=== PATIENT | female | born 1955 | race Caucasian/White ===

== ENCOUNTER → 2017-01-30 | Outpatient (CLI) | payer BC | END | disposition home or self-care (01) | LOC: GMAL 14:15 | PROVIDERS: ATTEND Family Medicine | DX: N30.00 Acute cystitis without hematuria (principal) ==

== ENCOUNTER → 2017-03-09 | Outpatient (CLI) | payer BC ==
--- NOTE | 2017-03-09 17:32 | RAD ---
Procedure: XR HIP 2 OR MORE VIEWS Exam Date: 03/09/2017 12:00 AM CDT Ordering Provider: MELY SHIRLEY Clinical Indication: LEFT HIP PAIN. M25.552 Comparison: None Findings: No fracture, focal osseous destruction, or malalignment. Joint spaces are preserved. Soft tissues are unremarkable. IMPRESSION: No acute osseous abnormality. Electronically signed by: Nelli Seymour MD 03/09/2017 5:32 PM CDT
--- NOTE | 2017-03-09 17:32 | RAD ---
Procedure: XR PELVIS 1-2 VIEWS Exam Date: 03/09/2017 12:00 AM CDT Ordering Provider: MELY SHIRLEY Clinical Indication: LEFT HIP PAIN Comparison: None Findings: No fracture, focal osseous destruction, or malalignment. Joint spaces are preserved. Soft tissues are unremarkable. IMPRESSION: No acute osseous abnormality. Electronically signed by: Nelli Seymour MD 03/09/2017 5:31 PM CDT
== END | disposition home or self-care (01) ==
LOC: RAD 14:24
PROVIDERS: ATTEND Orthopaedic Surgery
DX: M25.552 Pain in left hip (principal)

== ENCOUNTER → 2017-04-24 | Outpatient (CLI) | payer BC ==
--- NOTE | 2017-04-24 14:33 | MAM ---
EXAM DESCRIPTION: 3D Screening BILATERAL CLINICAL HISTORY: 62 yearsFemaleSCREENING. No complaints. Postmenopausal. Not currently taking HRT. COMPARISON: Digital screening bilateral examination 06/02/2010. No prior reports available. TECHNIQUE: Bilateral CC and MLO projection full-field images, 3-D tomosynthesis digital mammographic technique. Also bilateral synthesized CC/ MLO full-field images. CAD not utilized. FINDINGS: The breast parenchymal density pattern is: Scattered areas of fibroglandular density. No skin thickening or nipple retraction left axillary lymph nodes. Small microcalcifications in the anterior lateral right breast. Small skin calcifications on the lateral right breast. No focal, stellate mass or density, focal asymmetry , and no suspicious microcalcifications bilaterally. Stable mammograms since May 2010. IMPRESSION: BI-RADS CATEGORY: 2 - BENIGN FINDINGS. FOLLOW UP: Routine digital bilateral screening, one year interval from date Written communication explaining the findings and follow-up, will be mailed to the patient and referring health care provider. According to the [employer], yearly mammograms are recommended starting at age 40 and continuing as long as a woman is in good health. Any breast change noted on a breast self-exam should be reported promptly to the patient's healthcare provider. Breast MRI is recommended for women with an approximately 20-25% or greater lifetime risk of breast cancer, including women with a strong family history of breast or ovarian cancer and women who have been treated for Hodgkin's disease. A negative mammographic report should not delay tissue diagnosis in patients with significant clinical history or physical findings. Extremely dense breast tissue limits the sensitivity of digital mammography. Electronically signed by: Pavel Olguin MD 04/24/2017 2:32 PM CDT Workstation: [id number]
== END ==
LOC: MAMMO 09:00
PROVIDERS: ATTEND Family Medicine
DX: Z12.31 Encounter for screening mammogram for malignant neoplasm of breast (principal)

== ENCOUNTER → 2017-05-21 | Outpatient (CLI) | payer BC | END | disposition home or self-care (01) | LOC: LAB.O 13:43 | PROVIDERS: ATTEND Family Medicine | DX: N39.0 Urinary tract infection, site not specified (principal) ==

== ENCOUNTER → 2018-08-05 | Outpatient (CLI) | payer BC ==
--- NOTE | 2018-08-05 10:34 | RAD ---
EXAM DESCRIPTION: Hand,Right 3 Views CLINICAL HISTORY: HAND PAIN COMPARISON: None Available. TECHNIQUE: AP, LATERAL, AND OBLIQUE FINDINGS: Three-view right hand shows no fracture or dislocation. There is a curvilinear calcification medial to the fifth metacarpal phalangeal joint. This appears to be a dystrophic calcification likely related to previous ligamentous injury. This was not present on the remote prior study from February 2012. IMPRESSION: 1. Calcification left fifth MCP-otherwise negative Electronically signed by: Foreign Zapata MD 08/05/2018 10:32 AM CDT
== END ==
LOC: RAD 09:19
PROVIDERS: ATTEND Orthopaedic Surgery
DX: M79.641 Pain in right hand (principal)

== ENCOUNTER → 2019-07-09 | Outpatient (CLI) | payer BC | LOC: GMAL 14:18 | PROVIDERS: ATTEND Family Medicine | DX: D51.3 Other dietary vitamin B12 deficiency anemia (principal); E55.9 Vitamin D deficiency, unspecified; N18.9 Chronic kidney disease, unspecified ==

== ENCOUNTER → 2020-02-23 | Outpatient (CLI) | payer OTHER ==
--- NOTE | 2020-02-23 16:01 | RAD ---
EXAM DESCRIPTION: Abdomen Flat Upright: CR/DR/XR. CLINICAL HISTORY: GEN ABD PN COMPARISON: Abdominal 3 view May 2010. TECHNIQUE: 3 VIEWS. Upright abdomen and chest AP, supine abdomen AP and supine abdomen and pelvis AP. FINDINGS: No acute process in the lung bases or pleura. Cardiopulmonary vascular structures radiographically unremarkable. No free air under the diaphragms. Air-fluid level in single segment of small bowel left midabdomen overlying the left kidney. No other distended segments of small bowel. Gas in the proximal and mid colon with fecal matter distally. Lumbar spondylosis L4-L5 and L5-S1. IMPRESSION: No free air under the diaphragm and no small bowel obstruction. Minimal bowel stasis. Constipation distal colon. No abnormality in the lung bases. Electronically signed by: Pavel Olguin MD 02/23/2020 4:00 PM CDT
== END ==
LOC: RAD 15:17
PROVIDERS: ATTEND Family Medicine
DX: K59.00 Constipation, unspecified (principal)

== ENCOUNTER → 2020-03-08 | Outpatient (CLI) | payer MEDICARE, OTHER | LOC: GMAL 14:26 | PROVIDERS: ATTEND Family Medicine | DX: D51.3 Other dietary vitamin B12 deficiency anemia (principal); R53.83 Other fatigue; E34.8 Other specified endocrine disorders; E55.9 Vitamin D deficiency, unspecified; I10 Essential (primary) hypertension; R73.9 Hyperglycemia, unspecified; E78.49 Other hyperlipidemia ==

== ENCOUNTER → 2020-03-23 | Outpatient (CLI) | payer MEDICARE, OTHER ==
--- NOTE | 2020-03-23 17:03 | MAM ---
EXAM DESCRIPTION: 3D Screening BILATERAL : Digital Mammography. CLINICAL HISTORY: 65 years Female ANNUAL SCREENING . No complaints. No personal or family history of breast cancer. Menarche age 13. Childbirth age 31. Menopause age 57. HRT 5 or more years ago.. Lifetime risk of developing breast cancer (Tyrer-Cuzick model)(%): 8.6. COMPARISON: Bilateral screening digital breast tomosynthesis May 2018 and April 2017. TECHNIQUE: Bilateral CC and MLO projection full-field images, digital tomosynthesis mammographic technique. Bilateral digital 2-D full-field MLO images. CAD available for 2-D images. FINDINGS: The breast parenchymal density pattern is: Scattered areas of fibroglandular density No skin thickening or nipple retraction. Bilateral solitary microcalcifications. Axillary nodes. Small groups of benign microcalcifications. No new focal, stellate mass or density, focal asymmetry , and no suspicious microcalcifications bilaterally. Stable mammograms compared to prior study. IMPRESSION: Benign exam. BIRAD CATEGORY: 2 BENIGN FINDINGS. RECOMMENDATIONS: FOLLOW UP: Routine digital bilateral mammographic screening, one year interval from March 2020. Written communication explaining the IMPRESSION and follow-up, will be mailed to the patient and referring health care provider According to the [employer], yearly mammograms are recommended starting at age 40 and continuing as long as a woman is in good health. Any breast change noted on a breast self-exam should be reported promptly to the patient's healthcare provider. Breast MRI is recommended for women with an approximately 20-25% or greater lifetime risk of breast cancer, including women with a strong family history of breast or ovarian cancer and women who have been treated for Hodgkin's disease. A negative mammographic report should not delay tissue diagnosis in patients with significant clinical history or physical findings. Extremely dense breast tissue limits the sensitivity of digital mammography. Electronically signed by: Pavel Olguin MD 03/23/2020 5:02 PM CDT
--- NOTE | 2020-03-24 15:50 | US ---
EXAM DESCRIPTION: Abdomen,Complete: Ultrasound. CLINICAL HISTORY: 65 years FemaleRIGHT UPPER QUADRANT PAIN COMPARISON: Digital screening breast tomosynthesis on the same visit. TECHNIQUE: Transabdominal scanning: grayscale and Doppler modes. FINDINGS: Gallbladder: Small to moderate-sized. Echogenic structures adherent to the wall, the largest is on the hepatic wall and demonstrating acoustic shadowing measures 1.25 cm. A polyp with no acoustic shadowing more medial and superior measures 7.5 mm. Wall thickness 1.8 mm normal caliber. No fluid in the wall. Nontender with transducer pressure. Common bile duct: 4.0 mm which is normal limits. Liver: Heterogeneously increased echogenicity. Long axis right lobe 13.9 cm. Physiologic flow in the portal vein with caliber 8 mm at the trent hepatis. Smooth capsule with no ascites.. Pancreas: Normal echogenicity and size with no pancreatic duct visible.. Abdominal aorta: Normal caliber from the proximal segment to the distal bifurcation. IVC: visualized; normal caliber. Spleen normal echogenicity; long axis measurement is 9.2 cm. Right kidney: 10.2 cm long axis. Minimal decrease in cortical thickness. 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 No echogenic stones or hydronephrosis. Left kidney: 9.7 cm Long axis with volume 129.6 mL. Normal cortical echogenicity and thickness. Volume 129.6 mL. Cluster of cysts versus complex cyst with septations in the lower pole measuring 1.7 x 1.5 x 1.3 cm. Possible calcification or stones. Posterior acoustic shadowing no hydronephrosis. . IMPRESSION: 1. Adherent stone versus polyp on the hepatic wall of the gallbladder. A second polyp is visible on the free wall. No wall thickening or fluid or tenderness. Common bile duct normal caliber. If gallbladder function is in question clinically, consider hepatobiliary radionuclide imaging. 2. Steatosis of the liver with normal size. Otherwise unremarkable. Pancreas is negative. 3. Complex cyst in the lower left kidney with greatest dimension 1.7 cm.. Possible calcification in the dominguez. Could also represent a cluster of cysts. Consider CT scan of the abdomen without and with IV contrast. Partial duplication of the right kidney. CRITICAL COMMUNICATION: The critical value was communicated directly by Dr. Olguin via phone call, with Dr. Britton Eid, at approximately 1535 hours, on March 24, 2020. Electronically signed by: Pavel Olguin MD 03/24/2020 3:49 PM CDT
== END ==
LOC: US 09:32
PROVIDERS: ATTEND Family Medicine
DX: Z12.31 Encounter for screening mammogram for malignant neoplasm of breast (principal); K87 Disorders of gallbladder, biliary tract and pancreas in diseases classified elsewhere; K76.0 Fatty (change of) liver, not elsewhere classified; N28.1 Cyst of kidney, acquired; N28.9 Disorder of kidney and ureter, unspecified

== ENCOUNTER → 2020-03-26 | Outpatient (CLI) | payer MEDICARE, OTHER | LOC: ECHO 09:12 | PROVIDERS: ATTEND Family Medicine | DX: I50.30 Unspecified diastolic (congestive) heart failure (principal); I51.7 Cardiomegaly ==

== ENCOUNTER → 2020-03-29 | Outpatient (CLI) | payer MEDICARE, OTHER ==
--- NOTE | 2020-03-29 11:04 | CT ---
EXAM DESCRIPTION: CT ABDOMEN WITHOUT AND WITH CONTRAST CLINICAL HISTORY: NEOPLASM OF LEFT KIDNEY COMPARISON: April 10, 2010, March 23, 2020 abdominal sonogram TECHNIQUE: CT of the abdomen is performed prior to and during IV bolus administration of nonionic contrast. Oral contrast media was not administered. The examination was performed from the lung bases to the mid pelvis on multiple sequences. The lower pelvis and bladder were not evaluated. This exam was performed according to our departmental dose-optimization program, which includes automated exposure control, adjustment of the mA and/or kV according to patient size and/or use of iterative reconstruction technique. FINDINGS: The lung bases are clear without infiltrates or effusions or masses. A small normal sized heart and small retrocardiac hiatal hernia noted. Review of remote [address] demonstrate no abnormality of the lower pole left kidney. A complicated or septated cyst lower pole left kidney suggested on current abdominal sonogram performed March 23, 2020. Noncontrast imaging suggest prominent calyces or small cysts involving the lower pole left kidney within the region of the inferior renal hilum. No intrarenal calculi or hydronephrosis identified. Venous phase imaging demonstrates no evidence of cortical mass on the right or left. Small parapelvic cyst suggested lower pole left kidney. Five minute delayed imaging demonstrates a bifid renal pelvis on the right without hydronephrosis or significant caliectasis. A single ureter is present. On the left at least two small parapelvic cysts surrounding the lower pole infundibulum noted with normal-appearing collecting system and no evidence of hydronephrosis. No solid mass evident. No further evaluation is recommended. A single normal collecting system and ureter noted on the left. No perinephric abnormalities noted. Venous imaging of the remainder of the abdomen and upper pelvis demonstrates normal enhancement of the liver. Gallbladder is appears incompletely distended but without visible stone or mass or wall thickening or ductal dilation. A small normal spleen is present with small accessory spleen annual. Pancreas is small in normal and small normal adrenal glands noted. Minimal aortic atherosclerosis without aneurysm or significant retroperitoneal adenopathy noted. Within the pelvis, prior surgery and surgical anastomosis in the region of the mid to distal sigmoid is noted with surgical suture line and a small area of inspissated contrast or dystrophic calcification along the posterior margin of the uterus. No adnexal masses or abdominal or pelvic ascites. No acute abnormality present. Small and large bowel caliber is normal. Moderately significant left colonic diverticulosis noted. Remotely identified changes of acute diverticulitis have resolved since remote study in 2009. IMPRESSION: 1. Left lower lobe kidney small parapelvic cysts, benign in appearance, with at least two and possibly three small cysts present. No significant solid component and no further workup recommended. No evidence of stone disease or solid renal mass. This corresponds to the sonographic abnormality identified. 2. Prior left colonic surgery and surgical anastomosis in the central pelvis behind the dome of the uterus. Residual diverticulosis of the left colon without diverticulitis. 3. Small retrocardiac hiatal hernia 4. Modest degenerative disc disease multiple levels, most prominent L2-3. Electronically signed by: Evan Fletcher MD 03/29/2020 11:03 AM CDT
== END ==
LOC: CT 08:00
PROVIDERS: ATTEND Family Medicine
DX: N28.1 Cyst of kidney, acquired (principal); K57.30 Diverticulosis of large intestine without perforation or abscess without bleeding; K44.9 Diaphragmatic hernia without obstruction or gangrene; M51.36 Other intervertebral disc degeneration, lumbar region; Z98.890 Other specified postprocedural states

== ENCOUNTER → 2020-04-01 | Outpatient (CLI) | payer MEDICARE, OTHER ==
--- NOTE | 2020-04-01 15:23 | RAD ---
EXAM DESCRIPTION: Foot,Right 3 Views CLINICAL HISTORY: 65 years Female, PAIN IN RIGHT FOOT COMPARISON: None. Findings: 3 views/radiographs Location: Right foot No acute fracture or dislocation. Osteopenia. Moderate first MTP arthropathy. Lisfranc alignment is maintained. No focal soft tissue swelling. Pes planus. Calcaneal enthesophytes. IMPRESSION: No evidence of acute process in the right foot. Electronically signed by: Fletcher Harrison MD 04/01/2020 3:22 PM CDT
--- NOTE | 2020-04-01 15:25 | RAD ---
EXAM DESCRIPTION: Hip,Right 2 Views CLINICAL HISTORY: 65 years Female, PAIN IN RIGHT HIP COMPARISON: None. FINDINGS: Two views of the right hip show no acute fracture or malalignment. No right hip joint space narrowing. No focal bone lesion or periostitis. No concerning soft tissue abnormality. IMPRESSION: Negative exam. Electronically signed by: Jack Fleming MD 04/01/2020 3:24 PM CDT
--- NOTE | 2020-04-01 15:25 | RAD ---
EXAM DESCRIPTION: Hip,Left 2 Views CLINICAL HISTORY: 65 years Female, PAIN IN LEFT HIP COMPARISON: None. FINDINGS: Two views of the left hip show no acute fracture or malalignment. No left hip joint space narrowing. No focal bone lesion. Pelvic phleboliths. The soft tissues are otherwise unremarkable. IMPRESSION: Negative exam. Electronically signed by: Jack Fleming MD 04/01/2020 3:23 PM CDT
--- NOTE | 2020-04-01 15:27 | RAD ---
EXAM DESCRIPTION: Pelvis CLINICAL HISTORY: 65 years Female, HIP PAIN COMPARISON: March 09, 2017 FINDINGS: Single AP view of the pelvis shows no acute fracture or malalignment. The hip joint spaces are well-maintained. The sacroiliac joints and pubic symphysis are unremarkable. Mild enthesopathic calcifications arise from the anterior superior iliac spines and greater trochanters bilaterally. Pelvic phleboliths. IMPRESSION: Mild degenerative changes, otherwise unremarkable exam. Electronically signed by: Jack Fleming MD 04/01/2020 3:25 PM CDT
== END ==
LOC: RAD 09:48
PROVIDERS: ATTEND Orthopaedic Surgery
DX: M16.0 Bilateral primary osteoarthritis of hip (principal); M79.671 Pain in right foot

== ENCOUNTER 2020-04-08 21:43 | Observation (INO) | payer MEDICARE, OTHER ==
[2020-04-08] MEDS ORDERED: SODIUM CHLORIDE 0.9% 1000ML 1,000 ML IVS ONE (22:08)
[2020-04-08] MEDS ORDERED: ONDANSETRON INJ 4 MG/2 ML VIAL IV ONE (22:08)
[2020-04-08] MEDS ORDERED: HYDROmorphone HCL INJ 2 MG/ML VIAL IV ONE (22:09)
--- NOTE | 2020-04-08 23:01 | ED.PDOC ---
History of Present Illness - General Chief Complaint: Abdominal Pain Stated Complaint: I think I am having a gallbladder attack Time Seen by Provider: 04/08/20 22:01 Information Source: patient Additional Information: 65yo F who presents for evaluation of acute abdominal pain radiating into the chest onset this evening. The patient states the pain began during meal time and after eating cheese. She states she has hx of gallstones and things that it could be her gallbladder. Associated nausea. No vomiting. The patient has no hx of cardiac disease. No report of exceptional CP. No fever or recent illness. She has hx of appendectomy in childhood and partial colectomy 10 years ago. No other reported issues. - History of Present Illness Abdominal Pain Onset Location: RUQ, epigastric Pain Radiation: chest Quality: moderate, dull Review of Systems - Review of Systems Constitutional: Denies: chills, fever EENTM: States: no symptoms reported Respiratory: Denies: cough, short of breath, wheezing Cardiology: States: chest pain. Denies: edema, palpitations Gastrointestinal/Abdominal: States: abdominal pain, nausea. Denies: diarrhea, vomiting Genitourinary: States: no symptoms reported Musculoskeletal: States: back pain. Denies: muscle pain, neck pain Skin: Denies: change in color, rash Neurological: Denies: headache, numbness, weakness Endocrine: States: no symptoms reported Past Medical History (General) - Patient Medical History Hx Congestive Heart Failure: No Hx Hypertension: Yes Hx Cancer: No - Vaccination History Hx Tetanus, Diphtheria Vaccination: No Hx Influenza Vaccination: Yes Hx Pneumococcal Vaccination: No - Social History Hx Tobacco Use: No Hx Alcohol Use: No Hx Substance Use: No Hx Substance Use Treatment: No Hx Depression: No - Female History Patient is a Female of Child Bearing Age (10 -59 yrs old): No Patient : No Family Medical History - Family History Mother Family History: Unknown Physical Exam - Physical Exam General Appearance: Alert, Other - Moderate distress due to discomfort Eyes, Ears, Nose, Throat Exam: PERRL/EOMI, normal ENT inspection Neck: non-tender, full range of motion, supple Respiratory: chest non-tender, lungs clear, no respiratory distress Cardiovascular/Chest: normal peripheral pulses, no edema Gastrointestinal/Abdominal: tenderness - RUQ no guarding or rebound Back Exam: normal inspection, no vertebral tenderness Extremity: normal range of motion, non-tender Neurologic: no motor/sensory deficits, alert, normal mood/affect, oriented x 3 Skin Exam: normal color, warm/dry Progress - Progress Progress: DDX: Acute cholecystitis, hepatobiliary problem, pancreatitis, gastritis, PUD, GERD, ACS, Arrhythmia, lyte disorder, anemia. N95 mask, gloves and eye protection used during encounter. Dennis Torres, #[id number] 04/08/20 23:20 Reviewed recent US from last month which demonstrates cholelithiasis. Elevated lipase likely biliary in etiology. Case discussed with patient and (Dr. Roman). Results reviewed together in detail. Agree with plan for admission and further assessment. 04/08/20 23:22 Case discussed with Nadia (hospitalist). Will admit. 04/08/20 23:28 - Results/Orders Results/Orders: 04/08/20 22:08 Sodium Chloride 0.9% 1000ML [Ns 1000 ml] 1,000 ml IVS ONCE 04/08/20 22:15 EKG STAT Laboratory Results - last 24 hr 04/08/20 04/08/20 04/08/20 22:20 22:20 22:20 WBC 5.9 RBC 4.92 Hgb 13.9 Hct 41.2 MCV 83.6 MCH 28.3 MCHC 33.8 RDW 14.0 Plt Count 183 MPV 9.2 Absolute Neuts (auto) 3.20 Absolute Lymphs (auto) 2.00 Absolute Monos (auto) 0.60 Absolute Eos (auto) 0.10 Absolute Basos (auto) 0.10 Neutrophils % 54.6 Lymphocytes % 33.7 Monocytes % 9.3 H Eosinophils % 1.2 Basophils % 1.2 Sodium 136 Potassium 3.9 Chloride 103 Carbon Dioxide 23 Anion Gap 13.9 BUN 22 H Creatinine 0.63 BUN/Creatinine Ratio 34.9 H Random Glucose 111 H Serum Osmolality 276.0 Calcium 9.3 Total Bilirubin 0.4 AST 20 ALT 21 Alkaline Phosphatase 62 Creatine Kinase 73 CK-MB (CK-2) 1.3 CK-MB (CK-2) % Not Reportable Troponin I < 0.02 Serum Total Protein 7.0 Albumin 3.9 Globulin 3.1 Albumin/Globulin Ratio 1.3 Amylase 253 H* Lipase 652 H Last Vital Signs Temp 98.2 F 04/08/20 21:50 Pulse 82 07/02/20 23:00 Resp 16 04/08/20 23:00 BP 144/77 04/08/20 23:00 Pulse Ox 92 L 04/08/20 23:00 - EKG/XRAY/CT EKG: Sinus, no ST T wave changes - (22:05) Comments: 81, nl axis, nl intervals Departure - Departure Clinical Impression: Acute pancreatitis Qualifiers: Pancreatitis type: biliary Acute pancreatitis complication: unspecified Qualified Code(s): K85.10 - Biliary acute pancreatitis without necrosis or infection Chest pain, unspecified Qualifiers: Chest pain type: unspecified Qualified Code(s): R07.9 - Chest pain, unspecified Time of Disposition: 23:19 Disposition: Admit Patient Condition: Fair Departure Forms: ED Discharge - Pt. Copy, Patient Portal Self Enrollment Instructions: DI for Abdominal Pain-Adult Referrals: Britton Eid III, MD [Primary Care Provider] - 1-2 Weeks Home Medications: Ambulatory Orders Sulfa/Trimeth 800/160 (Ds) Tab [Bactrim DS] 1 tablet PO BID #20 tab 05/24/18 Decision To Admit - Decistion To Admit Decision to Admit Reason: Admit from ER Decision to Admit Date: 04/08/20 Decision to Admit Time: 23:19
--- NOTE | 2020-04-08 23:39 | HP ---
SUPERVISING PHYSICIAN: Jovanny Montero MD CHIEF COMPLAINT: "I think I am having a gallbladder attack." HISTORY OF PRESENT ILLNESS: Ms. Roman is a 65 year-old female patient who presented to the Emergency Department last night having some right upper quadrant pain that was radiating into her chest that started on the evening of her visit to the Emergency Room. She endorsed that she does have a history of cholelithiasis and has been on a diet for her gallbladder but had a piece of cheese which shortly after she had a severe onset of symptoms in the right upper quadrant similar to previous episodes. In the Emergency Room, laboratory studies showed a normal white count. Chemistries showed just a slightly elevated BUN of 22, glucose 111, liver functions all within normal limits but her amylase was 253 and lipase was 652. Given her history and onset of symptoms and laboratory studies indicating she had biliary acute pancreatitis, the patient is going to be placed in observation for a surgical consultation with Dr. Lanza for acute laparoscopic cholecystectomy in the morning. The patient was placed in observation in stable condition. PAST MEDICAL HISTORY: 1. Hypertension with grade 1 diastolic dysfunction, last echocardiogram on March 26, 2020 showing ejection fraction of 60 to 65%. 2. Gastroesophageal reflux disease. 3. Cholelithiasis. 4. Irritable bowel syndrome. 5. Restless leg syndrome. 6. Hepatitis B. 7. Allergic rhinitis. 8. Recurrent urinary tract infections on chronic antibiotics in the form of Keflex. PAST SURGICAL HISTORY: 1. Appendectomy at age 13. 2. Open reduction and internal fixation of left jaw at age 26. 3. Laparoscopic sigmoid colectomy for recurrent diverticulitis in 2009. CURRENT MEDICATIONS: 1. Vitamin D3, 5000 units daily. 2. Pantoprazole 40 mg daily. 3. Vitamin D2, 50,000 units daily. 4. Vitamin B12, 1000 mcg daily. 5. Losartan Hydrochlorothiazide 100-12.5 mg, 1 tablet daily. 6. Progesterone micronized 200 mg, 1 capsule daily. 7. Thyroid 90 mg one-half tablet daily. FAMILY HISTORY: Father had a history of PSD and coronary artery disease. Mother at age 72 secondary to CVA and uncontrolled hypertension. She has one brother who has multiple medical problems and another brother who is healthy. She has one sister with rheumatoid arthritis and CVA, another sister who has multiple orthopedic problems and another sister who is healthy. She has one son who has ADHD, another son who is healthy. SOCIAL HISTORY: The patient works with her as an office nurse. She is , she lives in [place]. She has 2 children. She has never smoked and drinks alcohol on very rare occasions. REVIEW OF SYSTEMS: CONSTITUTIONAL: Denies general malaise, fevers, chills. HEENT: Denies headaches. vision changes, sore throat. nasal congestion, earaches. CHEST: Denies shortness of breath or coughing. HEART: Right-sided chest pain. Denies palpitations or syncopal episodes. ABDOMEN: As noted in history of present illness, right upper quadrant abdominal pain with nausea, no associated vomiting, diarrhea or constipation. GENITOURINARY: Denies dysuria, hematuria does have a history of chronic urinary tract infections. MUSCULOSKELETAL: Chronic back pain, denies joint swelling. SKIN: Denies lesions, rashes or unexplained changes. . NEUROLOGIC: Denies headaches, numbness, weakness, paresthesias, ataxia, seizures.. HEMATOLOGICAL: Denies unexplained bleeding, easy bruising or transfusion reactions. PHYSICAL EXAMINATION: VITAL SIGNS: On admission to the Emergency Room, temperature 98.2, pulse 83, blood pressure 148/85, respirations 20, oxygen saturation 99% on room air. GENERAL: The patient was resting comfortably, did not appear to be in any acute distress. She is alert. HEENT: Tympanic membranes clear bilaterally. Oropharynx pink and moist without lesions. NECK: Supple, non-tender, full range of motion, no jugular venous distention. CHEST: Clear to auscultation bilaterally without rhonchi, rales, or wheezes. CARDIOVASCULAR: Regular rate and rhythm without appreciable murmurs, rubs, or gallops. ABDOMEN: Abdominal tenderness noted to the right upper quadrant without guarding or rebound, no peritoneal signs. BACK: Without any vertebral tenderness. EXTREMITIES: No cyanosis, clubbing, or edema. NEUROLOGIC: She is alert and oriented x3. Cranial nerves II through XII are grossly intact. SKIN: Warm, pink and dry. LABORATORY: White count 5,900 without a left shift. Hemoglobin 13.9, hematocrit 41.2. Initial chemistries showed normal electrolytes with BUN of 22, creatinine 0.63, amylase 253, lipase 682. Liver functions all within normal limits. Troponin less than 0.02. Urinalysis is pending. RADIOLOGY: No additional radiographic studies were completed on this admission. She did have an ultrasound done on 03/23 and per radiology interpretation showed adherent stone versus polyp on the hepatic wall of the gallbladder. A second polyp was visible on the free wall, no wall thickening or fluid or tenderness. The common bile duct was normal with normal caliber at that time. ASSESSMENT: 1. Acute biliary pancreatitis with a history of cholelithiasis. 2. Hypertension with grade 1 diastolic dysfunction, last echocardiogram in March 2020 showing ejection fraction 60 to 65%. 3. Gastroesophageal reflux disease on Prevacid. 4. Irritable bowel syndrome. 5. Restless leg syndrome. 6. Previous hepatitis B infection in the late 70s. 7. Allergic rhinitis. PLAN: Ms. Roman is going to be placed in observation for surgical consultation with Dr. Lanza. I believe at this point there is discussion that she may have a laparoscopic cholecystectomy in the morning. We will await that consultation. She will be on pain control with Dilaudid a needed. She will have antiemetic medications in the form of Zofran and Phenergan as needed. She will be n.p.o. overnight awaiting further consultation. I anticipate her length of stay to be at least 1 to 2 days until we can transition her to outpatient management. [facility][id number] [facility]
[2020-04-08] MEDS ORDERED: DEX 5% W/NACL 0.45% 1000ML 1,000 ML IVS ONE (23:58)
[2020-04-09] MEDS ORDERED: SODIUM CHLORIDE 0.9% (FLUSH) 10 ML SYG IV PRN (00:02)
[2020-04-09] MEDS ORDERED: ONDANSETRON INJ 4 MG/2 ML VIAL IV PRN (00:02)
[2020-04-09] MEDS: DEX 5% W/NACL 0.45% 1000ML 1,000 ML IVS PRN ×3 (00:15→21:48)
[2020-04-09] MEDS ORDERED: IV SET AND CAP CHANGE INJ INJ SCH (00:30)
[2020-04-09] MEDS: PANTOPRAZOLE SODIUM IV 40 MG VIAL IV SCH (06:02)
[2020-04-09] MEDS ORDERED: SODIUM CHLORIDE 0.9% 1000ML 0 ML ONE (07:59)
[2020-04-09] MEDS: SODIUM CHLORIDE 0.9% (FLUSH) 10 ML SYG IV SCH ×2 (09:55→23:37)
[2020-04-09] MEDS: HYDROmorphone HCL INJ 2 MG/ML VIAL IV PRN ×3 (10:03→23:37)
[2020-04-09] MEDS ORDERED: DEXAMETHASONE INJ 10 MG/ML VIAL IV ONE (11:58)
[2020-04-09] MEDS ORDERED: PROPOFOL 200 MG/20 ML VIAL IV ONE (11:58)
[2020-04-09] MEDS ORDERED: SODIUM CHLORIDE 0.9% 50 ML VIAL INJ ONE (11:58)
[2020-04-09] MEDS ORDERED: MAGNESIUM SULFATE INJ 1 GM/2 ML VIAL IVPB ONE (11:58)
[2020-04-09] MEDS ORDERED: LIDOCAINE 1% 10 ML VIAL INJ ONE (11:58)
[2020-04-09] MEDS ORDERED: ePHEDrine SULF 50 MG/ML IV ONE (11:58)
[2020-04-09] MEDS ORDERED: BUPIVACAINE 0.25% W/EPI 50 ML VIAL INJ ONE (13:37)
[2020-04-09] MEDS ORDERED: LACTATED RINGERS 1,000 ML ONE (13:37)
[2020-04-09] MEDS ORDERED: BUPIVACAINE 0.5% W/EPI 30 ML VIAL INJ ONE ×2 (13:46→14:37)
[2020-04-09] MEDS ORDERED: SCOPOLAMINE PATCH 1.5MG 1 EA TD ONE (14:01)
[2020-04-09] MEDS ORDERED: SUGAMMADEX SODIUM 200 MG/2 ML VIAL IV ONE (14:05)
[2020-04-09] MEDS ORDERED: MIDAZOLAM INJ 2 MG/2 ML VIAL ONE (14:06)
[2020-04-09] MEDS ORDERED: FAMOTIDINE INJ 10 MG/ML VIAL IV ONE (14:06)
[2020-04-09] MEDS ORDERED: DEXMEDETOMIDINE HCL 200 MCG/2 ML INJ IV ONE (14:06)
[2020-04-09] MEDS ORDERED: ROCURONIUM BROMIDE 10 MG/ML VIAL ONE (14:06)
[2020-04-09] MEDS ORDERED: fentaNYL CITRATE INJ 50 MCG/ML 2 ML AMP ONE ×2 (14:06→15:06)
[2020-04-09] MEDS ORDERED: HYDROmorphone HCL INJ 2 MG/ML VIAL ONE (16:02)
[2020-04-09] MEDS ORDERED: HYDROmorphone HCL INJ 2 MG/ML VIAL IV ONE ×5 (16:05→16:45)
--- NOTE | 2020-04-09 16:06 | OP ---
DATE OF SURGERY: 04/09/20 PREOPERATIVE DIAGNOSIS: 1. Gallstone pancreatitis. POSTOPERATIVE DIAGNOSIS: 1. Gallstone pancreatitis. PROCEDURE: 1. Laparoscopic cholecystectomy with intraoperative cholangiogram. SURGEON: Tamir Lanza MD ANESTHESIA: General and local. FINDINGS: There is mild chronic and acute inflammation. Cholangiogram revealed normal ductal anatomy with free flow throughout and into the pancreatic duct. Examination of gallbladder revealed multiple small stones as well as the gallbladder polyp. COMPLICATIONS: None. ESTIMATED BLOOD LOSS: Minimal. . SPECIMEN: Gallbladder. CONDITION: Stable. PLAN: Observation and discharge. INDICATION: 65 year-old woman who presented with acute abdominal pain. Evaluation revealed elevated lipase and amylase in a known history of gallbladder stones. She is stable over the observation period and lab started to improve so we consented her for surgery. PROCEDURE: She was brought to the Operating Suite in the supine position. General anesthesia was induced. The patient was prepped and draped in sterile fashion. Marcaine 0.5% with epinephrine was used at all incision sites. While maintaining upward traction, a arpan was made near the base of the umbilicus. The Veress needle was introduced. There was free flow of fluid into the peritoneal cavity which was insufflated to an appropriate level with CO2 gas. The 5 mm trocar was placed followed by the camera. There was no evidence of bleeding or bowel injury. The patient was positioned and subxiphoid and lateral ports were placed under direct visualization without difficulty. There were a few anterior adhesions to the anterior capsule of the liver and the inferior portion was easily taken down and the gallbladder was retracted and the infundibulum was grasped. The infundibular structures were dissected free. A clip was placed on the proximal duct and ductotomy performed. The cholangiocatheter was introduced. The cholangiogram revealed the above normal findings. The catheter was removed. Three clips were placed on the distal duct. The duct was ligated. The main artery was then triply ligated as was a small posterior branch. The gallbladder was then dissected off the fossa in total and taken with the EndoCatch bag and examined on the back table. The fossa required minimal hemostasis under low pressure and remained hemostatic, the clips were intact. There was no bleeding or bile leak. The area was irrigated and aspirate was clear. The subxiphoid fascia was then closed with #0 Vicryl using the suture passer. It was airtight and non-bleeding. The remaining trocars were removed, the abdomen desufflated and the wounds closed with Monocryl. Dressings were applied. The patient was awakened and taken to Recovery in stable condition to be admitted. CC: Britton Eid MD #[id number] [facility]
[2020-04-09] MEDS ORDERED: cefTRIAXone SODIUM 1 GM in SODIUM CHL 0.9% 50ML MIN-BAG+ 50 ML IVPB SCH (16:30)
[2020-04-09] MEDS ORDERED: LACTATED RINGERS 900 ML IVS ONE (16:35)
[2020-04-09] MEDS ORDERED: MEPERIDINE HCL 50 MG/ML VIAL ONE (16:41)
[2020-04-09] MEDS: HYDROcodone 10MG/APAP 325MG 1 EA TAB PO PRN (21:42)
[2020-04-09] MEDS ORDERED: SODIUM CHLORIDE 0.9% (FLUSH) 10 ML SYG IV ONE (22:52)
[2020-04-10] MEDS: PANTOPRAZOLE SODIUM IV 40 MG VIAL IV SCH (06:02)
[2020-04-10] MEDS: HYDROcodone 10MG/APAP 325MG 1 EA TAB PO PRN (06:13)
[2020-04-10 08:49] VITALS: O2SAT 98
[2020-04-10] MEDS: SODIUM CHLORIDE 0.9% (FLUSH) 10 ML SYG IV SCH (09:02)
[2020-04-10] MEDS: HYDROmorphone HCL INJ 2 MG/ML VIAL IV PRN (09:02)
[2020-04-10 11:07] VITALS: BP 112/63; TEMP 98.9
--- NOTE | 2020-04-10 11:23 | PN ---
SUPERVISING PHYSICIAN: Jovanny Montero MD DATE: 04/09/20 SUBJECTIVE: Ms. Roman continues to have some pain in the right upper quadrant at time of exam. We are still waiting on Dr. Lanza for consultation and at that point our plan is to probably do a laparoscopic cholecystectomy this afternoon. She does remain n.p.o. She is not having any nausea, she has been afebrile. It looks like she has a mild urinary tract infection. I started her on Rocephin for that. OBJECTIVE: VITAL SIGNS: Temperature 98.2, pulse 81, blood pressure 120/83, respirations 18, oxygen saturation 95% on room air. GENERAL: The patient is resting comfortably, she did not appear to be in any acute distress. She is alert. CHEST: Clear to auscultation bilaterally without rhonchi, rales, or wheezes. . HEART: Regular rate and rhythm without appreciable murmurs, rubs, or gallops.. ABDOMEN: Soft with some continued tenderness in the right upper quadrant on palpation. No rebound tenderness, no guarding, no peritoneal signs.. EXTREMITIES: Without cyanosis, clubbing, or edema. NEUROLOGIC: She is alert and oriented x3. LABORATORY: Stable hemoglobin at 12.5 and hematocrit 37.2 with platelet count at 166, 000, white count 5,700. Chemistries show a sodium of 138, potassium 3.9, BUN 16, creatinine 0.65. Blood sugar 145, calcium a little low at 8.1 and corrected for a mildly low albumin to 8.2. Liver functions all within normal limits. Amylase down to 213, lipase down to 271. Triglycerides 103. Urinalysis did show large leukoesterase. Microscopic revealed 10 to 20 WBCs with 1+ bacteria. MICROBIOLOGY: Urine cultures pending. RADIOLOGY: No additional radiographic studies. ASSESSMENT: 1. Acute biliary pancreatitis with a history of cholelithiasis. 2. Hypertension with grade 1 diastolic dysfunction, last echocardiogram in March 2020 showing ejection fraction 60 to 65%. 3. Gastroesophageal reflux disease on Prevacid. 4. Irritable bowel syndrome. 5. Restless leg syndrome. 6. Previous hepatitis B infection in the late 70s. 7. Allergic rhinitis. PLAN: Will keep the patient n.p.o. and await consultation between Dr. Lanza and Dr. Roman which I think at this point as she is gong to go surgery this afternoon for laparoscopic cholecystectomy. She remains on Dilaudid for pain management. I would anticipate if we can actually have the surgery today that she will probably go home tomorrow. Will continue to follow her blood pressure and any medications she has we will update those as they are available and resume those as appropriate to her current care. Until then, we will continue to monitor and treat as needed.. #[id number] [facility]
--- NOTE | 2020-04-10 11:44 | PN ---
DATE: 04/10/20 SUBJECTIVE: Postoperative day #1. The patient complains of some right upper quadrant pain but non-severe. She is comfortable. OBJECTIVE: VITAL SIGNS: T-max 98.9, pulse in the 60s, blood pressure 112/63, adequate recorded urine output. GENERAL: She is alert and oriented and in no distress. ABDOMEN: Soft, she is comfortable and states a desire to be discharged. LABORATORY: Amylase 27 from 213, lipase is is 19 from 271. Triglyceride level had been ordered which was 103. ASSESSMENT: Post laparoscopic cholecystectomy with cholangiogram for gallstone pancreatitis. The examination of the gallbladder did reveal multiple small stones as well as the large attached polyp to the gallbladder wall. PLAN: The patient is doing postoperative and will be able to be discharged today. Advance diet slowly as tolerated. Prescription for [place] had been given. Resume activity as tolerated. [facility][id number] [facility]
--- NOTE | 2020-05-03 10:06 | DS ---
SUPERVISING PHYSICIAN: Jovanny Montero MD ADMISSION DIAGNOSIS: 1. Acute biliary pancreatitis with a history of cholelithiasis. 2. Hypertension with grade 1 diastolic dysfunction, last echocardiogram in March 2020 showing ejection fraction 60 to 65%. 3. Gastroesophageal reflux disease on Prevacid. 4. Irritable bowel syndrome. 5. Restless leg syndrome. 6. Previous hepatitis B infection in the late 70s. 7. Allergic rhinitis. DISCHARGE DIAGNOSIS: 1. Acute biliary pancreatitis secondary to cholecystectomy status post laparoscopic cholecystectomy by Dr. Lanza, postoperative day #1. 2. Hypertension with grade 1 diastolic dysfunction, last echocardiogram in March 2020 showing ejection fraction 60 to 65%. 3. Gastroesophageal reflux disease on Prevacid. 4. Irritable bowel syndrome. 5. Restless leg syndrome. 6. Previous hepatitis B infection in the late 70s. 7. Allergic rhinitis. REASON FOR HOSPITALIZATION: Ms. Roman is a 65 year-old female patient who presented to the Emergency Department last night having some right upper quadrant pain that was radiating into her chest that started on the evening of her visit to the Emergency Room. She endorsed that she does have a history of cholelithiasis and has been on a diet for her gallbladder but had a piece of cheese which shortly after she had a severe onset of symptoms in the right upper quadrant similar to previous episodes. In the Emergency Room, laboratory studies showed a normal white count. Chemistries showed just a slightly elevated BUN of 22, glucose 111, liver functions all within normal limits but her amylase was 253 and lipase was 652. Given her history and onset of symptoms and laboratory studies indicating she had biliary acute pancreatitis, the patient is going to be placed in observation for a surgical consultation with Dr. Lanza for acute laparoscopic cholecystectomy in the morning. The patient was placed in observation in stable condition. HOSPITAL COURSE: Ms. Roman was admitted for acute cholelithiasis requiring laparoscopic cholecystectomy. She was taken to surgery by Dr. Lanza on 04/09/20 where she had a laparoscopic cholecystectomy with intraoperative cholangiogram. She had no intraoperative complications or postoperative complications. Postoperatively, she did well. She was tolerating an oral diet, ambulating and had stable vital signs. She was felt stable enough and clinically improved well enough to continue with outpatient management. LABORATORY: CBC at discharge was within normal limits. Chemistries on discharge show normal electrolytes. Creatinine 0.65. Initially on admission, amylase was 253 which was down to 27 prior to discharge. Lipase initially was 652 and prior to discharge was down to 19. Urinalysis showed large leukocyte esterase with microscopic showing 10 to 20 WBCs, 5 to 10 epithelials, 1+ bacteria. MICROBIOLOGY: Final urine culture results showed mixed urogenital sunitha. PLAN: Ms. Roman was discharged on 04/10/20 with instructions to followup with Dr. Lanza in 1 or 2 weeks as well as Dr. Eid. Her diet will be regular diet as tolerated. Activities including walking as tolerated. Wound management, can shower in 24 hours. Remove tape in 5 days. She is to call Dr. Lanza for any questions and return to the Emergency Room as needed. No medications were prescribed on discharge. All other medications prior to hospitalization were continued. CONDITION ON DISCHARGE: Stable and improved. DISPOSITION: The patient was discharged home with family. #[id number] [facility]
== END 2020-04-10 11:59 | disposition home or self-care (01) ==
LOC: ER 21:43 → MS 23:38
PROVIDERS: ADMIT Nurse Practitioner Acute Care; ATTEND Surgery
DX: K85.10 Biliary acute pancreatitis without necrosis or infection (principal); K80.10 Calculus of gallbladder with chronic cholecystitis without obstruction; I10 Essential (primary) hypertension; K21.9 Gastro-esophageal reflux disease without esophagitis; K58.9 Irritable bowel syndrome, unspecified; M16.0 Bilateral primary osteoarthritis of hip; E11.9 Type 2 diabetes mellitus without complications; G25.81 Restless legs syndrome; J30.9 Allergic rhinitis, unspecified; E66.9 Obesity, unspecified; Z68.41 Body mass index [BMI] 40.0-44.9, adult; Z79.4 Long term (current) use of insulin; Z79.899 Other long term (current) drug therapy; Z87.440 Personal history of urinary (tract) infections; Z86.19 Personal history of other infectious and parasitic diseases
CPT/HCPCS: 96361; 96374; 96375 ×2; 96376 ×2; J3010 ×2; J1170 ×11; J2405; J3490; J7030; J3475; J1100; A4216 ×3; J2250; J7799 ×3; J7120 ×2; 82553; 80053 ×2; 87086; 36415 ×2; 82150 ×3; 84478; 81001; 85025 ×2; 82550; 83690 ×3; 83735; 84484; 88304; 94760 ×2; 99285; 73721; 93005; G0378; 47563; 00790

== ENCOUNTER → 2020-04-29 | Outpatient (CLI) | payer MEDICARE, OTHER ==
--- NOTE | 2020-04-30 08:17 | MRI ---
EXAM DESCRIPTION: Lumbar Spine w/o Contrast magnetic resonance imaging. CLINICAL HISTORY: RADICULOPATHY COMPARISON: MRI scan lumbar spine without contrast January 2012. TECHNIQUE: Multiplanar, multiple standard sequences, non contrast MRI, lumbar spine. FINDINGS: L5-S1: The disc is well visualized on axial T2 series 501, image 3. L5-S1: Normal signal in the disc with disc space preserved and no bulging. Facet joints and posterior ligaments (canal elements) are unremarkable. Mild narrowing left foramen. Right foramen and canal are patent. L4-L5: Disc desiccation and minimal disc space loss with no posterior bulging. Minimal hypertrophic changes of the canal elements. AP canal diameter 12 mm. Moderate left foraminal narrowing and mild right foraminal narrowing which has progressed since the prior study. L3-L4: Disc desiccation minimal disc space loss and posterior broad-based minimal bulge. Minimal hypertrophy of the canal elements. AP canal diameter 13 mm. Mild to moderate bilateral foraminal narrowing. No interval change from the prior study. L2-L3: Moderate endplate reactive changes posteriorly into the left of midline. Disc desiccation and posterior disc space loss and bulge. Minimal hypertrophic changes in the canal elements. Mild canal narrowing. Disc also bulging into the bilateral foramina which are mild to moderately narrowed. Spondylosis and hypertrophic changes in the canal elements have progressed since the prior study. L1-L2: Disc desiccation with disc space preserved with anterior posterior bulging. Minimal hypertrophic changes in the canal elements. Canal is patent with mild foraminal narrowing. This has progressed since the prior study. T12-L1: Disc desiccation with disc space maintained. Minimal hypertrophic changes in the canal elements. This has progressed since the prior study. Canal and bilateral foramina are patent. No scoliosis. Paravertebral soft tissues showing mild muscle atrophy.. Distal cord normal signal and caliber. Otherwise normal marrow signal in the remaining vertebral bodies and the posterior elements. Vertebral bodies are not compressed at any level. IMPRESSION: 1. Multilevel disc desiccation, degenerative hypertrophy of the facet joints and flavum ligaments. This has progressed since the prior study. No canal or foraminal stenosis. No disc herniations. Please see FINDINGS above for details concerning each disc level. Electronically signed by: Pavel Olguin MD 04/30/2020 8:15 AM CDT
== END ==
LOC: MRI 09:27
PROVIDERS: ATTEND Orthopaedic Surgery
DX: M51.35 Other intervertebral disc degeneration, thoracolumbar region (principal); M51.36 Other intervertebral disc degeneration, lumbar region; M46.96 Unspecified inflammatory spondylopathy, lumbar region; M24.28 Disorder of ligament, vertebrae

== ENCOUNTER → 2020-04-30 | Outpatient (CLI) | payer MEDICARE, OTHER ==
--- NOTE | 2020-05-02 15:00 | MRI ---
EXAM DESCRIPTION: Thoracic Spine w/o Contrast: Magnetic Resonance Imaging. CLINICAL HISTORY: THORACIC BACK PAIN COMPARISON: MRI scan lumbar spine without contrast on April 29. TECHNIQUE: Multiplanar, multiple standard sequences, non contrast MRI, thoracic spine. FINDINGS: Desiccation of the T7-T8 disc with minimal disc space loss. Old endplate reactive changes inferior to C7. Anterior bulging and endplate ridging. No posterior bulging. Canal and foramina are patent. Facets are negative. Desiccation at other disc spaces but no significant disc space loss and no posterior bulging. Anterior/the right bulging of the discs T6-T7 to T11-T12, with endplate ridging. No canal or foraminal stenosis. No facet degeneration at other levels. Other discs with normal signal. Disc spaces are preserved. Canal and foramina are patent. Facet joints are unremarkable. Conus terminates at L1-L2. Cord with normal signal, no compression. Number thoracic mild dextroscoliosis and lower thoracic mild levoscoliosis. Paravertebral soft tissues are unremarkable. Hyperintense circumscribed T1 and T2 vertebral body hemangioma at T12 and T9. Smaller hemangioma at T11. Otherwise, normal marrow signal in the remaining vertebral bodies and the posterior elements. Vertebral bodies are not compressed at any level. T2 counting image which includes the cervical spine showing a desiccated disc at C4-C5 with disc space loss posterior bulge or protrusion of the disc contacting the ventral cervical cord. IMPRESSION: 1. T7-T8 disc desiccation and minimal disc space loss with endplate reactive changes. No posterior disc bulge. No canal or foraminal stenosis. No significant facet arthrosis or hypertrophy. 2. Several discs with desiccation but not bulging into the canal or foramina. Anterior/right disc bulging and endplate hypertrophy at several levels. Minimal scoliosis. 3. Desiccated bulging posterior C4-C5 disc abutting the cord with endplate spondylosis. Correlate with clinical findings. Electronically signed by: Pavel Olguin MD 05/02/2020 2:58 PM CDT
== END ==
LOC: MRI 09:00
PROVIDERS: ATTEND Orthopaedic Surgery
DX: M51.34 Other intervertebral disc degeneration, thoracic region (principal); M50.321 Other cervical disc degeneration at C4-C5 level; M50.921 Unspecified cervical disc disorder at C4-C5 level; M54.16 Radiculopathy, lumbar region

== ENCOUNTER → 2020-06-24 | Outpatient (CLI) | payer MEDICARE, OTHER | LOC: RESP 13:24 | PROVIDERS: ATTEND Orthopaedic Surgery | DX: Z01.818 Encounter for other preprocedural examination (principal) ==

== ENCOUNTER 2020-07-19 05:08 | Day surgery (SDC) | payer MEDICARE, OTHER ==
[2020-07-19] MEDS ORDERED: ceFAZolin SODIUM 1 GM VIAL ONE (05:44)
[2020-07-19] MEDS ORDERED: SODIUM CHL 0.9% 100ML MINI-BAG 100 ML IVPB ONE (05:44)
[2020-07-19] MEDS ORDERED: LACTATED RINGERS 1,000 ML ONE (05:44)
[2020-07-19] MEDS ORDERED: KETAMINE HCL 100 MG/ML VIAL ONE (06:29)
[2020-07-19] MEDS ORDERED: MIDAZOLAM INJ 2 MG/2 ML VIAL ONE (06:30)
[2020-07-19] MEDS ORDERED: fentaNYL CITRATE INJ 50 MCG/ML 2 ML AMP ONE (06:30)
[2020-07-19] MEDS ORDERED: FAMOTIDINE INJ 10 MG/ML VIAL IV ONE (06:30)
[2020-07-19] MEDS ORDERED: LACTATED RINGERS 1,000 ML IVS ONE (06:40)
[2020-07-19] MEDS ORDERED: DEXAMETHASONE INJ 10 MG/ML VIAL ONE (07:00)
[2020-07-19] MEDS ORDERED: LIDOCAINE 1% 10 ML VIAL INJ ONE (07:00)
[2020-07-19] MEDS ORDERED: MAGNESIUM SULFATE INJ 1 GM/2 ML VIAL ONE (07:00)
[2020-07-19] MEDS ORDERED: PROPOFOL 200 MG/20 ML VIAL IV ONE (07:00)
[2020-07-19] MEDS ORDERED: DEXMEDETOMIDINE HCL 200 MCG/2 ML INJ IV ONE (07:33)
[2020-07-19] MEDS: ceFAZolin SODIUM 1 GM VIAL ONE ×2 (07:34→07:45)
[2020-07-19] MEDS: BUPIVACAINE LIPOSOME 13.3 MG/ML VIAL INJ ONE ×2 (07:34→07:55)
[2020-07-19] MEDS: BUPIVACAINE 0.5% 30 ML VIAL INJ ONE ×2 (07:34→07:55)
[2020-07-19] MEDS: VANCOMYCIN HCL INJ 1,000 MG VIAL IVPB ONE ×2 (07:35→07:45)
[2020-07-19] MEDS ORDERED: HYDROmorphone HCL INJ 2 MG/ML VIAL ONE (08:27)
[2020-07-19] MEDS ORDERED: ONDANSETRON INJ 4 MG/2 ML VIAL ONE (08:30)
[2020-07-19] MEDS ORDERED: HYDROmorphone HCL INJ 2 MG/ML VIAL IV ONE ×2 (08:40→08:52)
[2020-07-19] MEDS ORDERED: KETOROLAC TROMETHAMINE INJ 30 MG/ML VIAL ONE (08:42)
[2020-07-19] MEDS ORDERED: HYDROcodone 5MG/APAP 325MG 1 EA TAB ONE (09:26)
[2020-07-19 09:35] VITALS: BP 80/51; TEMP 97.6; O2SAT 99
--- NOTE | 2020-07-26 08:51 | OP ---
DATE OF PROCEDURE: 07/19/20 PREOPERATIVE DIAGNOSIS: 1. Osteophyte of the right first MTP joint. 2. 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 POSTOPERATIVE DIAGNOSIS: 1. Osteophyte of the right first MTP joint. 2. 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 PROCEDURE: 1. Resection of osteophyte. SURGEON: Usama Hernandez MD DECK [employer] HULL ASSEMBLER: Pavel Webster CST, SA-C ANESTHESIA: General anesthesia COMPLICATIONS: None. FINDINGS: Large osteophyte at the first MTP joint. INDICATION: Ms. Roman has a history of pain in that area of question. She has had ongoing discomfort because of the presence of a large osteophyte. We discussed options for her and she elected to undergo resection of the osteophyte. After discussing the risks, benefits and alternatives to that, she gave informed consent for that. PROCEDURE: The patient was brought to the Operating Room and placed in supine position. General anesthesia was induced and the patient's leg was sterilely prepped and draped. Following prepping and draping, an incision was made directly overlying the MTP joint and dissection was carried down to the area. Following that, the osteophyte was identified. The osteophyte was removed in its entirety. The wound was very thoroughly irrigated and closed with reapproximation of the joint capsule. After closure of the joint capsule, the skin was closed with a combination of running and interrupted subcuticular stitches. Sterile dressings were placed. The patient was awoken from anesthesia and taken to Recovery. POSTOPERATIVE PLAN: She will be weightbearing as tolerated and will followup with us in about two days. #[id number] [facility]
== END 2020-07-19 10:05 | disposition home or self-care (01) ==
LOC: AMB 05:08
PROVIDERS: ATTEND Orthopaedic Surgery
DX: M25.774 Osteophyte, right foot (principal); M19.071 Primary osteoarthritis, right ankle and foot; M20.21 Hallux rigidus, right foot; K21.9 Gastro-esophageal reflux disease without esophagitis; I10 Essential (primary) hypertension; E07.9 Disorder of thyroid, unspecified; Z79.899 Other long term (current) drug therapy
CPT/HCPCS: 01480; 28289; 80307; J0690; J1100; J1170; J1885; J2250; J2405; J3370; J3475; J3490; J7050; J7120

== ENCOUNTER → 2020-10-07 | Outpatient (CLI) | payer MEDICARE, OTHER ==
--- NOTE | 2020-10-08 08:04 | MRI ---
Study: MRI of the Right Shoulder. Indication: PAIN IN RT SHOULDER Technique: Multiplanar, multi sequence MRI of the right shoulder was obtained without intravenous contrast. Comparison: None. Findings: Severe hypertrophic AC joint osteoarthritis. Type II acromion with moderate lateral downsloping. Small to moderate volume subacromial/subdeltoid bursal fluid. Supraspinatus and infraspinatus tendinosis noted with irregular low grade bursal/interstitial tearing anterior third of the supraspinatus tendon insertion. No full-thickness tear. Subscapularis tendinosis. Minimal atrophy and grade 1 fatty infiltration rotator cuff musculature. Intracapsular long head biceps tendinosis. Anterior sublabral foramen. Circumferential labral truncation/degeneration. Mild glenohumeral joint osteoarthritis. No acute fracture. Mild fluid distention subcoracoid bursa. Impression: Supraspinatus and infraspinatus tendinosis with irregular low-grade interstitial tearing anterior two thirds supraspinatus insertion. Subscapularis tendinosis. Minimal atrophy and grade 1 fatty infiltration rotator cuff musculature. Intracapsular long head biceps tendinosis. Circumferential labral truncation and degeneration. Mild glenohumeral joint osteoarthritis. Severe hypertrophic AC joint osteoarthritis. Electronically signed by: Donnie Guy MD 10/08/2020 8:02 AM [facility]
== END ==
LOC: MRI 07:56
PROVIDERS: ATTEND Family Medicine
DX: S46.012A Strain of muscle(s) and tendon(s) of the rotator cuff of left shoulder, initial encounter (principal); M62.511 Muscle wasting and atrophy, not elsewhere classified, right shoulder; M77.9 Enthesopathy, unspecified; M75.21 Bicipital tendinitis, right shoulder; S43.432A Superior glenoid labrum lesion of left shoulder, initial encounter; M19.011 Primary osteoarthritis, right shoulder

== ENCOUNTER → 2020-10-28 | Outpatient (CLI) | payer MEDICARE, OTHER | LOC: LAB.O 10:35 | PROVIDERS: ATTEND Orthopaedic Surgery | DX: Z01.818 Encounter for other preprocedural examination (principal) ==

== ENCOUNTER 2020-11-02 05:29 | Day surgery (SDC) | payer MEDICARE, OTHER ==
[2020-11-02] MEDS ORDERED: PROPOFOL 200 MG/20 ML VIAL IV ONE (05:30)
[2020-11-02] MEDS ORDERED: ePHEDrine SULF 50 MG/ML IV ONE (05:30)
[2020-11-02] MEDS ORDERED: LIDOCAINE 1% 10 ML VIAL INJ ONE (05:30)
[2020-11-02] MEDS ORDERED: MAGNESIUM SULFATE INJ 1 GM/2 ML VIAL IVPB ONE (05:30)
[2020-11-02] MEDS ORDERED: KETOROLAC TROMETHAMINE INJ 30 MG/ML VIAL IV ONE (05:30)
[2020-11-02] MEDS ORDERED: DEXAMETHASONE INJ 10 MG/ML VIAL IV ONE (05:30)
[2020-11-02] MEDS ORDERED: ceFAZolin SODIUM 1 GM VIAL ONE ×2 (05:54→06:15)
[2020-11-02] MEDS ORDERED: SODIUM CHL 0.9% 100ML MINI-BAG 100 ML IVPB ONE (05:54)
[2020-11-02] MEDS ORDERED: LACTATED RINGERS 1,000 ML ONE (05:54)
[2020-11-02] MEDS ORDERED: VANCOMYCIN HCL INJ 1,000 MG VIAL IVPB ONE ×2 (06:15→06:59)
[2020-11-02] MEDS ORDERED: BUPIVACAINE LIPOSOME 13.3 MG/ML VIAL INJ ONE ×2 (06:15→06:59)
[2020-11-02] MEDS ORDERED: BUPIVACAINE 0.5% 30 ML VIAL INJ ONE ×2 (06:15→06:59)
[2020-11-02] MEDS ORDERED: DEXMEDETOMIDINE HCL 200 MCG/2 ML INJ IV ONE (06:25)
[2020-11-02] MEDS ORDERED: KETAMINE HCL 100 MG/ML VIAL ONE (06:25)
[2020-11-02] MEDS ORDERED: MIDAZOLAM INJ 5 MG/5 ML VIAL ONE (06:25)
[2020-11-02] MEDS ORDERED: fentaNYL CITRATE INJ 50 MCG/ML 2 ML AMP ONE (06:25)
[2020-11-02] MEDS ORDERED: FAMOTIDINE INJ 10 MG/ML VIAL IV ONE (06:26)
[2020-11-02] MEDS ORDERED: LACTATED RINGERS 1,000 ML IVS ONE (06:38)
[2020-11-02] MEDS ORDERED: ceFAZolin SODIUM 1 GM VIAL IRRIG ONE (06:59)
[2020-11-02] MEDS ORDERED: SODIUM CHLORIDE 0.9% (FLUSH) 10 ML SYG ONE (09:50)
[2020-11-02] MEDS: HYDROmorphone HCL INJ 2 MG/ML VIAL ONE ×3 (09:50→10:14)
[2020-11-02] MEDS ORDERED: HYDROcodone 5MG/APAP 325MG 1 EA TAB ONE (10:45)
[2020-11-02 11:40] VITALS: BP 129/65; TEMP 98.2; O2SAT 97
--- NOTE | 2020-11-10 08:51 | OP ---
DATE OF PROCEDURE: 11/02/20 PREOPERATIVE DIAGNOSIS: 1. Impingement. 2. Rotator cuff tear. POSTOPERATIVE DIAGNOSIS: 1. Impingement. 2. Rotator cuff tear. PROCEDURE: 1. Acromioplasty. 2. Rotator cuff repair. 3. Distal clavicle resection. SURGEON: Usama Hernandez MD. DINKEY DRIVER: Pavel Webster CST, SA-[place]. ANESTHESIA: General anesthesia. COMPLICATIONS: None. FINDINGS: 1. Type 3 acromion. 2. Full thickness rotator cuff tear involving the supraspinatus. 3. Advanced arthritis of the acromioclavicular joint. INDICATION: Ms. Roman has a long history of shoulder pain. She has been dealing with this and has failed conservative measures. After discussing the risks, benefits and alternatives to operative therapy, the patient has given informed consent. PROCEDURE: The patient was brought to the Operating Room and placed in the supine position. General anesthesia was induced and the patient was transitioned into the beach chair position. The arm and shoulder were then sterilely prepped and draped. Following prepping and draping, an incision was made directly at the lateral border of the acromion. After identification of the deltoid, the anterior and middle heads were split. An acromioplasty was performed and bursectomy. The rotator cuff was identified and examined fully. The aforementioned tear which measured about 1 cm in width and was full thickness was identified. The tendon end was debrided and the bony footprint was debrided. Four suture anchors in a SpeedBridge type construct were used to secure the tendon to its anatomic footprint. The arm was taken through a range of motion and there was no undue tension on the repair. The wound was irrigated and the deltoid was reapproximated. Attention was then focused on the distal clavicle. The acromioclavicular joint was identified and full thickness periosteal flaps were developed. Following that, about 7 mm of the distal clavicle was resected. Care was taken to ensure that all bony debris was fully removed. It was thoroughly irrigated and the periosteal flaps were reapproximated over the defect. The wound was thoroughly irrigated and the skin was closed with a combination of running and interrupted subcuticular stitches. Sterile dressings were placed. The patient was placed in a sling and awoken from anesthesia. POSTOPERATIVE PLAN: She will followup with us in two days. I will begin gentle passive range of motion in approximately one week. #[id number] MTDD
== END 2020-11-02 11:25 | disposition home or self-care (01) ==
LOC: AMB 05:29
PROVIDERS: ATTEND Orthopaedic Surgery
DX: M75.41 Impingement syndrome of right shoulder (principal); M75.101 Unspecified rotator cuff tear or rupture of right shoulder, not specified as traumatic; M19.90 Unspecified osteoarthritis, unspecified site; K21.9 Gastro-esophageal reflux disease without esophagitis; I10 Essential (primary) hypertension; Z90.49 Acquired absence of other specified parts of digestive tract; Z79.899 Other long term (current) drug therapy
CPT/HCPCS: 01630; 23120; 23130; 23412; A4216; J0690; J1100; J1170; J1885; J2250; J3370; J3475; J3490; J7050; J7120